=== PATIENT | male | born 1975 ===

== ENCOUNTER 2016-08-30 02:58 | Emergency (ER) | payer SELFPAY ==
[~2016-08-30] VITALS: Ht 190.5 cm; Wt 64.5 kg
[2016-08-30 03:07] VITALS: Ht 190.5 cm; Wt 64.5 kg
== END 2016-08-30 03:44 | disposition left against medical advice (07) ==
LOC: E/R 02:58
DX: Z53.21 Procedure and treatment not carried out due to patient leaving prior to being seen by health care provider (principal)